=== PATIENT | male | born 1955 | race Asian ===

== ENCOUNTER 2019-10-13 17:25 | Emergency (ER) | payer OTHER ==
[~2019-10-13] VITALS: Ht 188 cm; Wt 104.3 kg
[2019-10-13 18:35] LABS: PLATELET COUNT 208 K/uL (142-355)
[2019-10-13 21:00] VITALS: BP 151/69; TEMP 98.9
== END 2019-10-13 21:00 | disposition home or self-care (01) ==
LOC: ED 17:25
PROVIDERS: Family Medicine
DX: J06.9 Acute upper respiratory infection, unspecified (principal); I10 Essential (primary) hypertension; R51 Headache
CPT/HCPCS: 36415; 80053; 85027; 87502; 87651; 99284

== ENCOUNTER 2020-08-09 04:14 | Emergency (ER) | payer OTHER ==
[~2020-08-09] VITALS: Ht 188 cm; Wt 86.2 kg
[2020-08-09 05:24] VITALS: BP 192/71; TEMP 98.5
== END 2020-08-09 05:24 | disposition home or self-care (01) ==
LOC: ED 04:14
DX: S30.21XA Contusion of penis, initial encounter (principal); I10 Essential (primary) hypertension; F17.210 Nicotine dependence, cigarettes, uncomplicated; W22.8XXA Striking against or struck by other objects, initial encounter; Y92.89 Other specified places as the place of occurrence of the external cause
CPT/HCPCS: 81000; 99284; J1885

== ENCOUNTER 2021-09-16 07:47 | Emergency (ER) | payer OTHER ==
[~2021-09-16] VITALS: Ht 188 cm; Wt 99.8 kg
[2021-09-16 07:57] VITALS: BP 194/86; TEMP 97.4
[2021-09-16 09:03] LABS: PLATELET COUNT 208 K/uL (142-355)
[2021-09-16 09:09] LABS: POTASSIUM 4.3 mmol/L (3.6-5.2)
== END 2021-09-16 10:36 | disposition short-term general hospital (02) ==
LOC: ED 07:47
PROVIDERS: Emergency Medicine
DX: I63.9 Cerebral infarction, unspecified (principal); G81.94 Hemiplegia, unspecified affecting left nondominant side; I10 Essential (primary) hypertension; E11.9 Type 2 diabetes mellitus without complications; Z79.84 Long term (current) use of oral hypoglycemic drugs; Z11.52 Encounter for screening for COVID-19
CPT/HCPCS: 80053; 80307; 80320; 82550; 84484; 85027; 87635; 93005; 99284; U0003